=== PATIENT | male | born 1950 | race Caucasian/White ===

== ENCOUNTER → 2020-10-21 | Outpatient (CLI) | payer OTHER ==
[~2020-10-21] MED LIST: AMLO2.5T3 PO; CARV12.5 PO; CLOP75TA2 PO; D 101000 PO; ECOT81TA5 PO; LISI20TA33 PO; SIMV10TA21 PO
--- NOTE | 2020-10-27 08:33 | REP ---
INDICATION: COLON CA COMPARISON: Outside prior examination dated 09/25/2018. TECHNIQUE: Axial noncontrast images from the thoracic inlet to the upper abdomen with coronal and sagittal reformations. This CT examination was performed using the following dose reduction techniques: Automated exposure control, adjustment of mA and/or kv according to the patient's size, and use of iterative reconstruction technique. FINDINGS: There is a new 5.5 mm noncalcified nodule in the right middle lobe (series 204; image 84). Underlying stable chronic scattered interstitial changes primarily along the posterior subpleural right lower lobe are again noted and essentially unchanged. No acute consolidation. No effusion. No pneumothorax. Tracheobronchial tree is patent. No obvious significant adenopathy identified by noncontrast evaluation. Stable significant atherosclerotic disease to the thoracic aorta and coronary arteries again noted without aortic aneurysm or cardiomegaly. No pericardial effusion. Limited upper abdomen demonstrates innumerable diffuse bilateral hepatic hypodense mass lesions consistent with metastatic disease. The adrenal glands are relatively normal/stable. Stable chronic atrophic appearance of the left kidney again noted. Musculoskeletal structures demonstrate degenerative changes without obvious acute focal process. IMPRESSION: 1. New 5.5 mm noncalcified nodule in the right middle lobe requires further investigation and follow-up as metastatic disease cannot be excluded. 2. Diffuse metastatic disease to the liver. <Electronically signed by Manuel Daniels > 10/27/20 [id number]
--- NOTE | 2020-10-27 08:46 | REP ---
INDICATION: COLON CA COMPARISON: None TECHNIQUE: Axial noncontrast images from the lung bases to the pubic symphysis with coronal and sagittal reformations. This CT examination was performed using the following dose reduction techniques: Automated exposure control, adjustment of mA and/or kv according to the patient's size, and use of iterative reconstruction technique. FINDINGS: The liver demonstrates innumerable low-density lesions consistent with diffuse metastatic disease measuring up to roughly 4.5 cm diameter. Spleen, pancreas, gallbladder, and bilateral adrenal glands are relatively normal by noncontrast evaluation. Left kidney demonstrates chronic atrophy while both kidneys demonstrate extensive renovascular calcifications and possible small nonobstructing intrarenal nephroliths. Evaluation of the enteric system demonstrates contracted stomach and gastric wall thickening cannot be excluded. There is no evidence for bowel obstruction. 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 The residual descending and sigmoid colon demonstrate diverticular disease without acute diverticulitis. Pelvis demonstrates normal bladder and mildly prominent prostate gland with parenchymal calcifications. No ascites. No obvious adenopathy. Extensive atherosclerotic disease to the aorta and branch vessels including significant calcifications at the origins of the bilateral renal arteries, celiac axis and mesenteric artery. IMPRESSION: 1. Significant diffuse hepatic metastatic disease. 2. Extensive atherosclerotic disease likely related to the asymmetric atrophic appearance of the left kidney. 3. No ascites. No free air. No obvious adenopathy. <Electronically signed by Manuel Daniels > 10/27/20 [id number]
== END ==
LOC: M RAD 12:49
PROVIDERS: ATTEND Internal Medicine Hematology & Oncology
DX: C18.9 Malignant neoplasm of colon, unspecified (principal); C78.7 Secondary malignant neoplasm of liver and intrahepatic bile duct; R91.8 Other nonspecific abnormal finding of lung field

== ENCOUNTER → 2021-01-23 | Outpatient (CLI) | payer OTHER ==
[~2021-01-23] MED LIST changes: +GASTROGRAFIN SOLUTION 30ML (Q9963) As Ordered ONE; +IRON27TA2 PO; +ISOVUE-370 76% 100ML VIAL As Ordered ONE; +PROC10TA5 PO
== END ==
LOC: M RAD 08:48
PROVIDERS: ATTEND Internal Medicine Hematology & Oncology
DX: C18.9 Malignant neoplasm of colon, unspecified (principal); C78.7 Secondary malignant neoplasm of liver and intrahepatic bile duct
CPT/HCPCS: 71260; 74177; Q9963; Q9967

== ENCOUNTER → 2021-02-12 | Outpatient (CLI) | payer OTHER ==
[~2021-02-12] MED LIST changes: -GASTROGRAFIN SOLUTION 30ML (Q9963) As Ordered ONE; -ISOVUE-370 76% 100ML VIAL As Ordered ONE; +PROC10TA4 PO; -PROC10TA5 PO
--- NOTE | 2021-02-12 12:27 | REP ---
INDICATION: RT ARM ABN CT SCAN COMPARISON: None. TECHNIQUE: Real time sonographic evaluation and duplex Doppler evaluation of the Right upper extremity arterial system is performed. FINDINGS: There is mild plaquing and narrowing of the arterial system with no evidence of hemodynamically significant stenosis. There is no arterial occlusion. Right arterial structures: Peak systolic velocity (cm/s)/waveform Distal subclavian: 112/biphasic Axillary: 119/biphasic Mid brachial: 128/biphasic Proximal radial: 49/biphasic Distal radial: 66/triphasic Proximal ulnar:66/biphasic Distal ulnar: 110/biphasic IMPRESSION: No evidence of hemodynamically significant stenosis and no evidence of occlusion of the right upper extremity arterial system. <Electronically signed by Haresh Lara > 02/12/21 [id number]
--- NOTE | 2021-02-12 12:37 | REP ---
INDICATION: EVAL FOR SUBCLAVIAN VEIN THROMBUS F/U CT. COMPARISON: None. TECHNIQUE: Multiple ultrasonographic images of the deep venous structures of the right upper extremity were obtained to rule out deep venous thrombosis. The contralateral subclavian vein was also interrogated in a limited fashion for comparison. FINDINGS: There is no abnormal echogenic material seen in any of the visualized deep venous structures of the right upper extremity. Coaptation where applicable is appropriate throughout. Note is made of echogenic material in the visualized portion of the right innominate vein. IMPRESSION: No evidence of right upper extremity DVT as described above, however, possible thrombus in the right innominate vein. <Electronically signed by Preet Nelson > 02/12/21 [id number]
== END ==
LOC: M RAD 10:50
PROVIDERS: ATTEND Internal Medicine Hematology & Oncology
DX: R93.6 Abnormal findings on diagnostic imaging of limbs (principal); M79.601 Pain in right arm; R09.89 Other specified symptoms and signs involving the circulatory and respiratory systems

== ENCOUNTER → 2021-04-23 | Outpatient (CLI) | payer OTHER ==
[~2021-04-23] MED LIST changes: +GASTROGRAFIN SOLUTION 30ML (Q9963) As Ordered ONE; +ISOVUE-370 76% 100ML VIAL As Ordered ONE; -PROC10TA4 PO; +PROC10TA5 PO
== END ==
LOC: M RAD 11:11
PROVIDERS: ATTEND Internal Medicine Hematology & Oncology
DX: C18.9 Malignant neoplasm of colon, unspecified (principal)
CPT/HCPCS: 71260; 74177; Q9963; Q9967

== ENCOUNTER → 2021-06-23 | Outpatient (CLI) | payer OTHER ==
[~2021-06-23] MED LIST changes: +AMOX875T PO; +CLAR10CA3 PO; +GABA-282 PO; +PYRI25TA2 PO; +ZYRTTAB8 PO
== END ==
LOC: M RAD 15:11
PROVIDERS: ATTEND Internal Medicine Hematology & Oncology
DX: C18.9 Malignant neoplasm of colon, unspecified (principal); C78.7 Secondary malignant neoplasm of liver and intrahepatic bile duct
CPT/HCPCS: 71260; 74178; Q9963; Q9967

== ENCOUNTER 2021-08-17 16:50 | Inpatient (IN) | payer OTHER ==
[~2021-08-17] VITALS: Ht 170.2 cm; Wt 50.8 kg
[~2021-08-17 16:50] MED LIST changes: -GASTROGRAFIN SOLUTION 30ML (Q9963) As Ordered ONE; -ISOVUE-370 76% 100ML VIAL As Ordered ONE
[2021-08-17] MEDS: SODIUM BICARBONATE 150 MEQ in STERILE WATER LITER BAG 1,000 ML IV SCH (19:00)
[2021-08-17] MEDS ORDERED: MOM 30ML SUSPENSION UDC PO PRN (19:25)
[2021-08-17] MEDS ORDERED: ACETAMINOPHEN TAB 650MG DOSE (2X325MG) PO PRN (19:25)
[2021-08-17 19:36] VITALS: BP 123/59
[2021-08-17 20:01] VITALS: BP 137/63
[2021-08-17 20:03] LABS: HEMATOCRIT 30.7 % (42.0-52.0); HEMOGLOBIN 10.5 g/dl (13.5-17.5); MEAN CORPUSCULAR HEMOGLOBIN 35.6 pg (27.0-33.0); MEAN CORPUSCULAR HGB CONC 34.2 g/dl (32.0-36.5); MEAN CORPUSCULAR VOLUME 104.1 fl (80.0-96.0); PLATELET COUNT, AUTOMATED 137 10^3/uL (150-450); RED BLOOD COUNT 2.95 10^6/uL (4.30-6.10); WHITE BLOOD COUNT 23.1 10^3/uL (4.0-10.0)
[2021-08-17 20:22] LABS: ABG BASE EXCESS -11.8 (-2.0-2.0); ABG HCO3 13.3 MEQ/L (22.0-26.0); ABG O2 SATURATION 98.1 % (95.0-99.0); ABG PARTIAL PRESSURE CO2 27.5 mmHg (35.0-45.0); ABG STANDARD HCO3 15.2 MEQ/L (22.0-26.0); ABG TOTAL CO2 14.1 MEQ/L (23.0-31.0); ABG pH (ARTERIAL) 7.301 UNITS (7.350-7.450)
[2021-08-17 20:28] LABS: ALBUMIN 3.3 GM/DL (3.2-5.2); BILIRUBIN,TOTAL 0.4 MG/DL (0.2-1.0); CALCIUM LEVEL 8.1 MG/DL (8.8-10.2); CREATININE FOR GFR 4.49 MG/DL (0.70-1.30); GLOMERULAR FILTRATION RATE 13.9 (>42); POTASSIUM SERUM 4.8 MEQ/L (3.5-5.1); TOTAL PROTEIN 6.7 GM/DL (6.4-8.2)
[2021-08-17] MEDS ORDERED: LACTATED RINGER'S 1000 ML IV ONE (20:35)
[2021-08-17] MEDS ORDERED: PATIROMER SORBITEX CALCIUM 8.4 GM POWDER PACKET (VELTASSA) PO ONE (20:35)
[2021-08-17] MEDS ORDERED: ATORVASTATIN 20 MG TAB PO SCH (21:00)
[2021-08-17] MEDS: DOCUSATE SODIUM 100MG CAPSULE PO SCH (21:00)
[2021-08-17] MEDS ORDERED: CARVedilol 12.5 MG TAB PO SCH (21:00)
[2021-08-17] MEDS ORDERED: CARVedilol 6.25 MG TAB PO SCH (21:00)
[2021-08-17] MEDS ORDERED: CARV12.5 PO (21:33)
[2021-08-17] MEDS ORDERED: LISI20TA33 PO (21:33)
[2021-08-17] MEDS ORDERED: ASPI-161 PO (21:33)
[2021-08-17] MEDS ORDERED: CLOP75TA2 PO (21:33)
[2021-08-17] MEDS ORDERED: AMLO1TAB24 PO (21:33)
[2021-08-17] MEDS ORDERED: ATOR80TA59 PO (21:33)
[2021-08-17] MEDS ORDERED: FERR1TAB8 PO (21:33)
[2021-08-17] MEDS ORDERED: HOME MED LIST COMPLETE! XX SCH (21:35)
[2021-08-17] MEDS: MAG SULF 1GM/100ML (MAG RUN) 1 GM in IV 1 EA IV SCH ×2 (21:38→22:37)
[2021-08-17 21:40] VITALS: BP 119/63
[2021-08-17] MEDS ORDERED: LR 1,000 ML IV SCH (21:45)
[2021-08-17 22:00] VITALS: BP 104/52
[2021-08-17] MEDS: HEPARIN SOD (PORCINE) 5000UNITS/ML 1ML VIAL/SYRINGE SC SCH (22:48)
[2021-08-17 23:00] VITALS: BP 118/59
[2021-08-17] MEDS: cefTRIAXone SOD 1 GM in D5W MINI-BAG PLUS 50 ML IV SCH (23:00)
[2021-08-18] VITALS (24 sets, daily range): BP systolic 92–159; BP diastolic 44–85
[2021-08-18 03:30] LABS: BILIRUBIN, URINE MANUAL NEGATIVE (NEGATIVE); GLUCOSE, URINE (UA) MANUAL NEGATIVE (NEGATIVE); KETONE, URINE MANUAL NEGATIVE (NEGATIVE); UROBILINOGEN, URINE MANUAL NORMAL (NORMAL)
[2021-08-18 03:32] LABS: BACTERIA, URINE NONE SEEN; HYALINE CAST, URINE NONE SEEN /lpf (0-1); SQUAMOUS EPITHELIAL CELL URINE SMALL AMOUNT /hpf (SMALL AMT)
[2021-08-18 05:02] LABS: HEMATOCRIT 25.9 % (42.0-52.0); MEAN CORPUSCULAR HEMOGLOBIN 36.3 pg (27.0-33.0); MEAN CORPUSCULAR HGB CONC 34.7 g/dl (32.0-36.5); MEAN CORPUSCULAR VOLUME 104.4 fl (80.0-96.0); PLATELET COUNT, AUTOMATED 104 10^3/uL (150-450); RED BLOOD COUNT 2.48 10^6/uL (4.30-6.10)
[2021-08-18 05:30] LABS: ALBUMIN 2.8 GM/DL (3.2-5.2); BILIRUBIN,TOTAL 0.3 MG/DL (0.2-1.0); CALCIUM LEVEL 7.9 MG/DL (8.8-10.2); CREATININE FOR GFR 3.8 MG/DL (0.70-1.30); GLOMERULAR FILTRATION RATE 16.8 (>42); MAGNESIUM LEVEL 2.6 MG/DL (1.8-2.4); POTASSIUM SERUM 4.6 MEQ/L (3.5-5.1); TOTAL PROTEIN 5.8 GM/DL (6.4-8.2)
[2021-08-18] MEDS: HEPARIN SOD (PORCINE) 5000UNITS/ML 1ML VIAL/SYRINGE SC SCH (06:46)
[2021-08-18] MEDS: DOCUSATE SODIUM 100MG CAPSULE PO SCH (08:33)
[2021-08-18] MEDS: SODIUM BICARBONATE 150 MEQ in STERILE WATER LITER BAG 1,000 ML IV SCH (08:56)
[2021-08-18] MEDS ORDERED: CLOPIDOGREL 75 MG TAB PO SCH (09:00)
[2021-08-18] MEDS ORDERED: PANTOPRAZOLE 40MG VIAL IV SCH (09:00)
[2021-08-18] MEDS ORDERED: VITAMIN D 1,000 INTERNATIONAL UNITS TABLET PO SCH (09:00)
[2021-08-18] MEDS ORDERED: amLODIPine 5 MG TAB PO SCH (09:00)
[2021-08-18] MEDS ORDERED: CARVedilol 6.25 MG TAB PO SCH (09:00)
[2021-08-18] MEDS: PANTOPRAZOLE 40MG VIAL IV SCH ×2 (09:00→20:18)
[2021-08-18] MEDS ORDERED: FERROUS SULFATE 325MG TAB PO SCH (09:00)
[2021-08-18] MEDS ORDERED: ASPIRIN 81MG ENTERIC TABLET PO SCH (09:00)
[2021-08-18 10:10] LABS: HEMATOCRIT 25.6 % (42.0-52.0); HEMOGLOBIN 8.8 g/dl (13.5-17.5)
[2021-08-18] MEDS: SUCRALFATE SUSP 1GM/10ML UD PO SCH ×2 (13:03→20:18)
[2021-08-18] MEDS ORDERED: PROPOFOL 1,000 MG/100 ML VIAL As Ordered ONE (14:19)
[2021-08-18 19:14] LABS: HEMATOCRIT 22.8 % (42.0-52.0); HEMOGLOBIN 8.2 g/dl (13.5-17.5)
[2021-08-18] MEDS: CARVedilol 3.125 MG TAB PO SCH (20:18)
[2021-08-18] MEDS: cefTRIAXone SOD 1 GM in D5W MINI-BAG PLUS 50 ML IV SCH (23:21)
[2021-08-19] VITALS (12 sets, daily range): BP systolic 106–139; BP diastolic 52–67
[2021-08-19 01:56] LABS: HEMATOCRIT 21.3 % (42.0-52.0); HEMOGLOBIN 7.6 g/dl (13.5-17.5); MEAN CORPUSCULAR HEMOGLOBIN 35.5 pg (27.0-33.0); MEAN CORPUSCULAR HGB CONC 35.7 g/dl (32.0-36.5); MEAN CORPUSCULAR VOLUME 99.5 fl (80.0-96.0); PLATELET COUNT, AUTOMATED 93 10^3/uL (150-450); RED BLOOD COUNT 2.14 10^6/uL (4.30-6.10); WHITE BLOOD COUNT 11.2 10^3/uL (4.0-10.0)
[2021-08-19 02:16] LABS: DOHLE BODIES 1+; EOSINOPHILS 1 % (0-3); LYMPHOCYTES 22 % (16-44); METAMYELOCYTES 1 % (0-0); MONOCYTES 3 % (0-5); NEUTROPHILS 62 % (28-66); PLATELET ESTIMATE NORMAL (NORMAL)
[2021-08-19 02:17] LABS: ANISOCYTOSIS 1+
[2021-08-19 02:24] LABS: CALCIUM LEVEL 7.6 MG/DL (8.8-10.2); CREATININE FOR GFR 2.7 MG/DL (0.70-1.30); GLOMERULAR FILTRATION RATE 24.9 (>42); MAGNESIUM LEVEL 1.8 MG/DL (1.8-2.4); PHOSPHORUS LEVEL 3.1 MG/DL (2.5-4.9); POTASSIUM SERUM 3.6 MEQ/L (3.5-5.1)
[2021-08-19] MEDS: SUCRALFATE SUSP 1GM/10ML UD PO SCH ×2 (09:00→20:51)
[2021-08-19] MEDS: CARVedilol 3.125 MG TAB PO SCH ×2 (09:00→21:00)
[2021-08-19] MEDS: SODIUM BICARBONATE 150 MEQ in STERILE WATER LITER BAG 1,000 ML IV SCH ×2 (09:00→15:24)
[2021-08-19] MEDS: PANTOPRAZOLE 40MG VIAL IV SCH ×2 (09:01→20:52)
[2021-08-19 10:00] LABS: HEMATOCRIT 21.3 % (42.0-52.0); HEMOGLOBIN 7.4 g/dl (13.5-17.5)
[2021-08-19] MEDS ORDERED: KCL 10MEQ/100ML SWI (KRUN) 10 MEQ in IV 1 EA IV SCH (10:00)
[2021-08-19] MEDS ORDERED: KCL 10MEQ/100ML SWI (KRUN) 10 MEQ in IV 1 EA IV ONE ×3 (10:45→12:45)
[2021-08-19] MEDS ORDERED: MAG SULF 1GM/100ML (MAG RUN) 1 GM in IV 1 EA IV ONE (11:00)
[2021-08-19] MEDS: metroNIDAZOLE 500 MG in IV 1 EA IV SCH ×2 (11:03→18:24)
[2021-08-19] MEDS: MULTIVITAMINS/MINERALS THERAP 1 TAB PO SCH (11:03)
[2021-08-19] MEDS: KCL 10MEQ/100ML SWI (KRUN) 10 MEQ in IV 1 EA IV SCH ×4 (13:34→17:16)
[2021-08-19] MEDS ORDERED: SODIUM CHLORIDE 0.9% INJ 10 ML SYR IV PRN (15:25)
[2021-08-19] MEDS: FERROUS GLUCONATE 324 MG TAB PO SCH (16:38)
[2021-08-19 18:22] LABS: HEMATOCRIT 22.6 % (42.0-52.0); HEMOGLOBIN 7.9 g/dl (13.5-17.5)
[2021-08-19 18:29] LABS: PERCENT SATURATION 17.1 % (19.7-50.0)
[2021-08-19] MEDS: cefTRIAXone SOD 1 GM in D5W MINI-BAG PLUS 50 ML IV SCH (23:07)
[2021-08-20] VITALS (15 sets, daily range): BP systolic 105–158; BP diastolic 52–69
[2021-08-20] MEDS: metroNIDAZOLE 500 MG in IV 1 EA IV SCH ×3 (01:28→18:27)
[2021-08-20 01:58] LABS: HEMATOCRIT 21.3 % (42.0-52.0); HEMOGLOBIN 7.6 g/dl (13.5-17.5)
[2021-08-20] MEDS: SODIUM BICARBONATE 150 MEQ in STERILE WATER LITER BAG 1,000 ML IV SCH (02:58)
[2021-08-20 03:56] LABS: HEMOGLOBIN 7.1 g/dl (13.5-17.5); MEAN CORPUSCULAR HEMOGLOBIN 35.9 pg (27.0-33.0); MEAN CORPUSCULAR HGB CONC 35.5 g/dl (32.0-36.5); RED BLOOD COUNT 1.98 10^6/uL (4.30-6.10); WHITE BLOOD COUNT 11.6 10^3/uL (4.0-10.0)
[2021-08-20 04:02] LABS: PLATELET COUNT, AUTOMATED 88 10^3/uL (150-450)
[2021-08-20 04:05] LABS: INR 1.21; PROTHROMBIN TIME 15.7 SECONDS (12.7-14.5)
[2021-08-20 04:06] LABS: PARTIAL THROMBOPLASTIN TIME 33.7 SECONDS (25.9-37.0)
[2021-08-20 04:21] LABS: ANISOCYTOSIS 1+; ATYPICAL LYMPH 5 % (0-5); BASOPHILS 1 % (0-1); EOSINOPHILS 1 % (0-3); LYMPHOCYTES 16 % (16-44); MONOCYTES 9 % (0-5); NEUTROPHILS 66 % (28-66); PLATELET ESTIMATE DECREASED (NORMAL); POIKILOCYTOSIS 1+
[2021-08-20 04:34] LABS: CALCIUM LEVEL 7.1 MG/DL (8.8-10.2); CREATININE FOR GFR 1.92 MG/DL (0.70-1.30); GLOMERULAR FILTRATION RATE 36.9 (>42); MAGNESIUM LEVEL 1.9 MG/DL (1.8-2.4); PHOSPHORUS LEVEL 1.9 MG/DL (2.5-4.9); POTASSIUM SERUM 3.7 MEQ/L (3.5-5.1)
[2021-08-20] MEDS: SUCRALFATE SUSP 1GM/10ML UD PO SCH ×2 (09:37→21:01)
[2021-08-20] MEDS: MULTIVITAMINS/MINERALS THERAP 1 TAB PO SCH (09:37)
[2021-08-20] MEDS: PANTOPRAZOLE 40MG VIAL IV SCH ×2 (09:37→21:01)
[2021-08-20] MEDS: FERROUS GLUCONATE 324 MG TAB PO SCH (09:38)
[2021-08-20] MEDS: CARVedilol 3.125 MG TAB PO SCH ×2 (09:38→21:00)
[2021-08-20] MEDS: SODIUM CHLORIDE 0.9% INJ 10 ML SYR IV SCH (09:39)
[2021-08-20 18:55] LABS: HEMOGLOBIN 10.3 g/dl (13.5-17.5); MEAN CORPUSCULAR HEMOGLOBIN 34.3 pg (27.0-33.0); MEAN CORPUSCULAR HGB CONC 35.5 g/dl (32.0-36.5); MEAN CORPUSCULAR VOLUME 96.7 fl (80.0-96.0); WHITE BLOOD COUNT 15.8 10^3/uL (4.0-10.0)
[2021-08-20 19:02] LABS: PLATELET COUNT, AUTOMATED 87 10^3/uL (150-450)
[2021-08-20] MEDS: cefTRIAXone SOD 1 GM in D5W MINI-BAG PLUS 50 ML IV SCH (22:56)
[2021-08-21] MEDS: metroNIDAZOLE 500 MG in IV 1 EA IV SCH ×3 (02:55→18:03)
[2021-08-21 03:50] VITALS: BP 134/62
[2021-08-21 06:09] LABS: HEMATOCRIT 30.3 % (42.0-52.0); HEMOGLOBIN 10.7 g/dl (13.5-17.5); MEAN CORPUSCULAR HEMOGLOBIN 34.3 pg (27.0-33.0); MEAN CORPUSCULAR HGB CONC 35.3 g/dl (32.0-36.5); MEAN CORPUSCULAR VOLUME 97.1 fl (80.0-96.0); PLATELET COUNT, AUTOMATED 104 10^3/uL (150-450); RED BLOOD COUNT 3.12 10^6/uL (4.30-6.10); WHITE BLOOD COUNT 15.8 10^3/uL (4.0-10.0)
[2021-08-21 06:35] LABS: CALCIUM LEVEL 7.4 MG/DL (8.8-10.2); CREATININE FOR GFR 1.8 MG/DL (0.70-1.30); GLOMERULAR FILTRATION RATE 39.8 (>42); MAGNESIUM LEVEL 1.6 MG/DL (1.8-2.4); PHOSPHORUS LEVEL 2.2 MG/DL (2.5-4.9); POTASSIUM SERUM 3.8 MEQ/L (3.5-5.1)
[2021-08-21 07:08] LABS: EOSINOPHILS 3 % (0-3); LYMPHOCYTES 13 % (16-44); MONOCYTES 2 % (0-5); NEUTROPHILS 78 % (28-66); PLATELET ESTIMATE DECREASED (NORMAL)
[2021-08-21 07:09] LABS: ANISOCYTOSIS 1+
[2021-08-21] MEDS: SUCRALFATE SUSP 1GM/10ML UD PO SCH ×2 (08:17→21:02)
[2021-08-21] MEDS: MAG SULF 1GM/100ML (MAG RUN) 1 GM in IV 1 EA IV SCH ×2 (08:18→09:39)
[2021-08-21] MEDS: MULTIVITAMINS/MINERALS THERAP 1 TAB PO SCH (08:18)
[2021-08-21] MEDS: FERROUS GLUCONATE 324 MG TAB PO SCH (08:18)
[2021-08-21] MEDS: SODIUM CHLORIDE 0.9% INJ 10 ML SYR IV SCH (08:18)
[2021-08-21] MEDS: CARVedilol 3.125 MG TAB PO SCH ×2 (08:18→21:02)
[2021-08-21] MEDS: PANTOPRAZOLE 40MG VIAL IV SCH ×2 (08:18→21:02)
[2021-08-21 12:00] VITALS: BP 171/70
[2021-08-21 19:51] VITALS: BP 158/70
[2021-08-21] MEDS: cefTRIAXone SOD 1 GM in D5W MINI-BAG PLUS 50 ML IV SCH (23:14)
[2021-08-22] VITALS: BP 143/65
[2021-08-22] MEDS: metroNIDAZOLE 500 MG in IV 1 EA IV SCH (02:36)
[2021-08-22 04:00] VITALS: BP 127/60
[2021-08-22 07:46] LABS: BASO # 0.1 10^3/uL (0.0-0.2); BASO % 0.5 % (0.0-1.0); EOS # 0.3 10^3/uL (0.0-0.5); EOS % 1.7 % (0.0-3.0); HEMATOCRIT 34.6 % (42.0-52.0); HEMOGLOBIN 11.7 g/dl (13.5-17.5); LYMPH # 1.8 10^3/uL (1.5-5.0); LYMPH % 9.9 % (24.0-44.0); MEAN CORPUSCULAR HEMOGLOBIN 33.4 pg (27.0-33.0); MEAN CORPUSCULAR HGB CONC 33.8 g/dl (32.0-36.5); MEAN CORPUSCULAR VOLUME 98.9 fl (80.0-96.0); MONO % 5.5 % (2.0-8.0); NEUTROPHILS # 14.1 10^3/uL (1.5-8.5); NEUTROPHILS % 79.3 % (36.0-66.0); PLATELET COUNT, AUTOMATED 136 10^3/uL (150-450); WHITE BLOOD COUNT 17.8 10^3/uL (4.0-10.0)
[2021-08-22 07:55] VITALS: BP 144/69
[2021-08-22 08:16] LABS: CREATININE FOR GFR 1.72 MG/DL (0.70-1.30); GLOMERULAR FILTRATION RATE 41.9 (>42); PHOSPHORUS LEVEL 2.2 MG/DL (2.5-4.9); POTASSIUM SERUM 4.2 MEQ/L (3.5-5.1)
[2021-08-22 09:20] VITALS: BP 144/69
[2021-08-22] MEDS: CARVedilol 3.125 MG TAB PO SCH (09:20)
[2021-08-22] MEDS: MULTIVITAMINS/MINERALS THERAP 1 TAB PO SCH (09:20)
[2021-08-22] MEDS: FERROUS GLUCONATE 324 MG TAB PO SCH (09:20)
[2021-08-22] MEDS: PANTOPRAZOLE 40MG VIAL IV SCH (09:20)
[2021-08-22] MEDS: SUCRALFATE SUSP 1GM/10ML UD PO SCH (09:20)
[2021-08-22] MEDS: SODIUM CHLORIDE 0.9% INJ 10 ML SYR IV SCH (09:24)
[2021-08-22] MEDS ORDERED: AMOX875T2 PO (10:07)
[2021-08-22] MEDS ORDERED: CARV3.12 PO (10:07)
[2021-08-24] MEDS ORDERED: LOPE1CAP5 PO (13:41)
[2021-08-24] MEDS ORDERED: CYPR4TAB41 PO (13:41)
== END 2021-08-22 12:12 | disposition home or self-care (01) | DRG 871 ==
LOC: M ICU 19:20 → M PCU 08-19 17:33
PROVIDERS: ADMIT Internal Medicine; ATTEND Internal Medicine
PROC: B246ZZZ Ultrasonography of Right and Left Heart (ICD-10-PCS; principal; 2021-08-18)
DX: A41.9 Sepsis, unspecified organism (principal); R65.21 Severe sepsis with septic shock; E43 Unspecified severe protein-calorie malnutrition; C18.9 Malignant neoplasm of colon, unspecified; N17.9 Acute kidney failure, unspecified; C78.7 Secondary malignant neoplasm of liver and intrahepatic bile duct; C78.5 Secondary malignant neoplasm of large intestine and rectum; K92.2 Gastrointestinal hemorrhage, unspecified; E87.2 Acidosis; A09 Infectious gastroenteritis and colitis, unspecified; Z68.1 Body mass index [BMI] 19.9 or less, adult; Z92.21 Personal history of antineoplastic chemotherapy; Z93.3 Colostomy status; N18.31 Chronic kidney disease, stage 3a; I25.2 Old myocardial infarction; I12.9 Hypertensive chronic kidney disease with stage 1 through stage 4 chronic kidney disease, or unspecified chronic kidney disease; I73.9 Peripheral vascular disease, unspecified; E55.9 Vitamin D deficiency, unspecified; Z95.5 Presence of coronary angioplasty implant and graft; Z90.49 Acquired absence of other specified parts of digestive tract; I95.9 Hypotension, unspecified; R53.1 Weakness; F17.210 Nicotine dependence, cigarettes, uncomplicated; Z79.82 Long term (current) use of aspirin; Z79.899 Other long term (current) drug therapy; E86.0 Dehydration; D64.9 Anemia, unspecified

== ENCOUNTER → 2021-11-27 | Outpatient (CLI) | payer OTHER ==
[~2021-11-27] MED LIST changes: +AMLO1TAB24 PO; +AMLO25TA PO; +AMOX875T2 PO; +ASPI-161 PO; +ATOR80TA59 PO; +CARV3.12 PO; +CLOT10TR; +CYPR4TAB41 PO; +FERR1TAB8 PO; +GASTROGRAFIN SOLUTION 30ML (Q9963) As Ordered ONE; +ISOVUE-370 76% 100ML VIAL As Ordered ONE; +LOPE1CAP5 PO; +MAGICMW SSP; +PANT40TA29
== END ==
LOC: M RAD 12:36
PROVIDERS: ATTEND Internal Medicine Medical Oncology
DX: C18.9 Malignant neoplasm of colon, unspecified (principal); R91.8 Other nonspecific abnormal finding of lung field; C78.7 Secondary malignant neoplasm of liver and intrahepatic bile duct; N26.1 Atrophy of kidney (terminal)
CPT/HCPCS: 71260; 74177; Q9963; Q9967

== ENCOUNTER → 2022-01-26 | Outpatient (CLI) | payer OTHER ==
[~2022-01-26] MED LIST changes: +FURO20TA2 PO; -GASTROGRAFIN SOLUTION 30ML (Q9963) As Ordered ONE; -ISOVUE-370 76% 100ML VIAL As Ordered ONE; +LONS1TAB2 PO; +ONDA-84 PO
== END ==
LOC: M RAD 13:08
PROVIDERS: ATTEND Internal Medicine Medical Oncology
DX: C18.9 Malignant neoplasm of colon, unspecified (principal)